=== PATIENT | female | born 1980 | race Caucasian/White ===

== ENCOUNTER 2017-01-05 10:10 | Emergency (ER) | payer OTHER ==
[~2017-01-05] VITALS: Ht 162.6 cm; Wt 71.7 kg
[2017-01-05 10:10] VITALS: BP 134/89
[~2017-01-05 10:10] MED LIST: DOXYCYCLINE 10100 MG PO; NOHOMEMEDICATIONS; NORCO 7.5-3251 EACH PO; ZOFRAN ODT4 MG PO
[2017-01-05] MEDS ORDERED: BACTRIM DS TAB1 EACH PO (10:29)
== END 2017-01-05 10:45 | disposition home or self-care (01) ==
LOC: ER 10:10
DX: S30.861A Insect bite (nonvenomous) of abdominal wall, initial encounter (principal); L03.311 Cellulitis of abdominal wall; F10.99 Alcohol use, unspecified with unspecified alcohol-induced disorder; W57.XXXA Bitten or stung by nonvenomous insect and other nonvenomous arthropods, initial encounter; Y93.89 Activity, other specified; Y92.89 Other specified places as the place of occurrence of the external cause; Y99.8 Other external cause status

== ENCOUNTER 2017-06-26 22:22 | Inpatient (IN) | payer OTHER ==
[~2017-06-26] VITALS: Ht 165.1 cm; Wt 75.4 kg
[2017-06-26 22:22] VITALS: BP 130/65
[~2017-06-26 22:22] MED LIST changes: +BACTRIM DS TAB1 EACH PO
[2017-06-26 22:59] LABS: BASOPHILS 0.7 % (0.0-2.0); EOSINOPHILS 0.5 % (0.0-3.0); HEMATOCRIT 38.6 % (37.0-47.0); HEMOGLOBIN 13.1 gm/dL (12.0-15.0); LYMPHOCYTES 16.5 % (24.0-44.0); MANUAL DIFF NO; MCH 31.9 pg (26.0-34.0); MCHC 33.8 g/dL (28.0-37.0); MCV 94.4 fL (80.0-100.0); MONOCYTES 8.5 % (1.0-8.0); PLATELET COUNT 325 thou/uL (150-400); POLYS 73.8 % (36.0-66.0); RBC 4.09 mil/uL (4.20-5.00); RDW 13.8 % (10.5-14.5); WBC 16.3 thou/uL (4.0-11.0)
[2017-06-26 23:06] LABS: POTASSIUM 3.6 mmol/L (3.5-5.1)
[2017-06-26 23:12] LABS: ALBUMIN 4.2 g/dL (3.4-5.0); TOTAL BILIRUBIN 0.6 mg/dL (<0.1-1.0); TOTAL PROTEIN 7.9 g/dL (6.4-8.2)
[2017-06-27 01:02] VITALS: BP 130/65
[2017-06-27 01:07] VITALS: BP 102/48
[2017-06-27 01:45] VITALS: BP 113/62
[2017-06-27 04:05] VITALS: BP 91/51
[2017-06-27 04:24] LABS: HEMATOCRIT 31.7 % (37.0-47.0); MCH 32.2 pg (26.0-34.0); MCV 94.7 fL (80.0-100.0); RBC 3.35 mil/uL (4.20-5.00); RDW 13.2 % (10.5-14.5); WBC 13.8 thou/uL (4.0-11.0)
[2017-06-27 04:32] LABS: HEMOGLOBIN 10.8 gm/dL (12.0-15.0)
[2017-06-27 05:19] LABS: URINE BILIRUBIN NEGATIVE (Negative); URINE BLOOD 2+ (Negative); URINE COLOR YELLOW; URINE GLUCOSE-RANDOM* NEGATIVE (Negative); URINE KETONES 2+ (Negative); URINE LEUKOCYTES-REFLEX NEGATIVE (Negative); URINE PROTEIN (DIPSTICK) NEGATIVE (Negative); URINE SPECIFIC GRAVITY 1.025 (1.005-1.035); URINE UROBILINOGEN 0.2 E.U./dl (0.2-1.0)
[2017-06-27 05:25] LABS: CASTS None Seen /LPF (None Seen); CRYSTALS None Seen /LPF (None Seen); SQUAMOUS 4-10 Moderate /LPF (0-3); URINE RBC 3-10 Few /HPF (0-2); URINE WBC-REFLEX 0-5 Rare /HPF (0-5)
[2017-06-27 05:28] LABS: AMP/METHAMP POSITIVE (Negative); BARBITURATES Negative (Negative); BENZODIAZEPINES Negative (Negative); COCAINE Negative (Negative); METHADONE Negative (Negative); OPIATES POSITIVE (Negative); PCP Negative (Negative)
== END 2017-06-27 05:50 | disposition left against medical advice (07) | DRG 872 ==
LOC: ER 22:22 → EROBS 06-27 00:40 → 4S 06-27 01:24
PROVIDERS: Emergency Medicine; Nurse Practitioner Family
DX: A41.9 Sepsis, unspecified organism (principal); M25.471 Effusion, right ankle; D72.829 Elevated white blood cell count, unspecified; F19.10 Other psychoactive substance abuse, uncomplicated; F12.10 Cannabis abuse, uncomplicated; F17.210 Nicotine dependence, cigarettes, uncomplicated; Z79.899 Other long term (current) drug therapy
CPT/HCPCS: 10100